=== PATIENT | male | born 1980 | race Asian ===

== ENCOUNTER 2017-05-31 11:59 | Outpatient (CLI) | payer OTHER ==
--- NOTE | 2017-06-01 09:58 | XRAY Report ---
DATE OF SERVICE: 05/31/2017 THREE VIEW RIGHT FOOT: 05/31/2017 CLINICAL INDICATION: Pain. FINDINGS: AP, lateral, oblique views of the right foot demonstrate no evidence of fracture or dislocation. The joint spaces are preserved. No foreign body is seen in the soft tissues. IMPRESSION: NORMAL RIGHT FOOT. TD: 06/01/2017 10:57
--- NOTE | 2017-06-01 10:00 | XRAY Report ---
DATE OF SERVICE: 05/31/2017 THREE VIEW RIGHT ANKLE: 05/31/2017 CLINICAL INDICATION: Chronic pain. FINDINGS: AP, lateral, and oblique views of the right ankle demonstrate no evidence of fracture or dislocation. The joint spaces are preserved. No foreign body is seen in the soft tissues. IMPRESSION: NORMAL RIGHT ANKLE. TD: 06/01/2017 10:59
== END 2017-05-31 12:00 | disposition home or self-care (01) ==
LOC: DI 11:59
PROVIDERS: ATTEND Family Medicine
DX: M25.571 Pain in right ankle and joints of right foot (principal)

== ENCOUNTER 2020-05-17 20:14 | Outpatient (CLI) | payer BC | END 2020-05-17 20:15 | disposition home or self-care (01) | LOC: COV 20:14 | PROVIDERS: ATTEND Family Medicine | DX: U07.1 COVID-19 (principal) ==

== ENCOUNTER 2020-09-09 20:02 | Emergency (ER) | payer BC ==
[2020-09-09 20:09] VITALS: BP 150/100
[2020-09-09] MEDS ORDERED: TETANUS/DIPHTHERIA/PERTUSSIS 0.5 ML SYRINGE IM ONE (20:14)
[2020-09-09] MEDS ORDERED: AMOX/CLAV 875 MG/125 MG TABLET PO STA (20:14)
[2020-09-09] MEDS ORDERED: BACITRACIN ZINC OINT 1 PACKET TOP STA (20:14)
--- NOTE | 2020-09-09 20:16 | ED Physician Documentation ---
PD HPI UPPER EXT INJURY - Stated complaint Stated Complaint: RT ARM LAC - Chief complaint Chief Complaint: Laceration - History obtained from History obtained from: Patient - Additonal information Additional information: His own fully immunized dog bit him on the right forearm multiple times because he was not sharing his hamburger just prior to arrival. Patient is unsure of his own tetanus status. Review of Systems Constitutional: reports: Reviewed and negative Throat: reports: Reviewed and negative Cardiac: reports: Reviewed and negative Respiratory: reports: Reviewed and negative PD PAST MEDICAL HISTORY - Present Medications Home Medications: Ambulatory Orders Medication Instructions Recorded Confirmed Amox/Clav 875/125 [Augmentin] 1 each PO Q12H #14 tablet 09/09/20 Bacitracin Zinc Oint 1 applic TOP BID #1 gm 09/09/20 - Allergies Allergies/Adverse Reactions: Allergies Allergy/AdvReac Type Severity Reaction Status Date / Time No Known Drug Allergies Allergy Verified 09/09/20 20:06 PD ED PE NORMAL - Vitals Vital signs reviewed: Yes - General General: Alert and oriented X 3, No acute distress - HEENT HEENT: PERRL, EOMI - Neck Neck: Supple, no meningeal sign, No bony TTP - Cardiac Cardiac: RRR, No murmur - Respiratory Respiratory: No respiratory distress, Clear bilaterally - Abdomen Abdomen: Non tender - Extremities Extremities: Other (Multiple puncture wounds about the right arm on both sides, 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 Conservative care and watchful waiting this was advised. His wounds were irrigated and dressed and he is placed on Augmentin. None of the record wounds are long enough to require primary repair. Departure - Departure Disposition: 01 Home, Self Care Clinical Impression: Dog bite Qualifiers: Encounter type: initial encounter Qualified Code(s): W54.0XXA - Bitten by dog, initial encounter Condition: Good Record reviewed to determine appropriate education?: Yes Instructions: ED Bite Dog Prescriptions: Amox/Clav 875/125 [Augmentin] 1 each PO Q12H #14 tablet Bacitracin Zinc Oint 1 applic TOP BID #1 gm Comments: Keep the wounds dressed with a nonstick dressing such as Telfa under which you are going to apply the prescription antibiotic ointment. You can wash briefly with soap and water. All the wound should heal fine but it can take a little bit. Generally elevate the wound and return for any signs of infection including redness, swelling, drainage, increased pain, fevers. Forms: Activity restrictions
== END 2020-09-09 20:42 | disposition home or self-care (01) ==
LOC: ED 20:02
DX: S51.851A Open bite of right forearm, initial encounter (principal); S54.21XA Injury of radial nerve at forearm level, right arm, initial encounter; W54.0XXA Bitten by dog, initial encounter
CPT/HCPCS: 90471; 90715; 99283; A9270